=== PATIENT | female | born 1985 | race Caucasian/White ===

== ENCOUNTER 2021-02-16 02:48 | Inpatient (IN) | payer MEDICAID ==
[~2021-02-16] VITALS: Ht 167.6 cm; Wt 66.0 kg
[2021-02-16 03:35] LABS: MICROSCOPIC INDICATED
[2021-02-16] MEDS ORDERED: TERBUTALINE 1 MG/ML, 1ML SQ PRN (04:00)
[2021-02-16] MEDS ORDERED: FENTANYL PF 100 MCG/2ML IVPush PRN (04:00)
[2021-02-16] MEDS ORDERED: LACTATED RINGERS 1,000 ML IV SCH ×2 (04:00→06:00)
[2021-02-16] MEDS ORDERED: TERBUTALINE 1 MG/ML, 1ML IVPush PRN (04:00)
[2021-02-16] MEDS ORDERED: FENTANYL PF 100 MCG/2ML IV PRN (04:00)
[2021-02-16] MEDS ORDERED: OXYTOCIN 30U/ 0.9% NaCL 500ML 500 ML IV ONE (04:00)
[2021-02-16] MEDS ORDERED: ONDANSETRON 2MG/ML, 2ML IVPush PRN (04:00)
[2021-02-16 04:05] VITALS: BP 124/67
[2021-02-16 04:22] LABS: BASOPHILS % (AUTO) 0 % (0-1); EOSINOPHILS % (AUTO) 1 % (1-7); LYMPHOCYTES % (AUTO) 18 % (22-44); MEAN CORPUSCULAR HEMOGLOBIN 33.5 pg (27.0-34.8); MEAN CORPUSCULAR HGB CONC 35.4 g/dL (32.4-35.8); MEAN PLATELET VOLUME 10.3 fL (7.4-10.4); MONOCYTES % (AUTO) 7 % (2-9); NEUTROPHILS % (AUTO) 74 % (42-75); PLATELET COUNT 101 x10^3/uL (130-400); RED BLOOD COUNT 3.17 x10^6/uL (3.82-5.3); RED CELL DISTRIBUTION WIDTH 12.7 % (9.6-15.2)
[2021-02-16] MEDS ORDERED: FENTANYL/BUPIV./NS/PF 250 ML EPIDCONT ONE (04:57)
[2021-02-16] MEDS ORDERED: NALOXONE 0.4 MG/ML, 1ML IVPush PRN (06:00)
[2021-02-16] MEDS ORDERED: EPHEDRINE 50 MG/ML, 1ML IVPush PRN (06:00)
[2021-02-16] MEDS ORDERED: LACTATED RINGERS 1,000 ML IVBOLUS PRN (06:00)
[2021-02-16] MEDS ORDERED: FENTANYL/BUPIV./NS/PF 250 ML EPIDCONT SCH (06:00)
[2021-02-16] MEDS ORDERED: NEWBORN KIT ONE (06:41)
[2021-02-16] MEDS ORDERED: MISOPROSTOL 200 MCG TABLET ONE (07:20)
[2021-02-16] MEDS ORDERED: OXYTOCIN 30U/ 0.9% NaCL 500ML 500 ML ONE (09:26)
[2021-02-16] MEDS ORDERED: IBUPROFEN 600 MG TABLET ONE (09:27)
[2021-02-16] MEDS ORDERED: SIMETHICONE 80 MG CHEW TAB PO PRN (09:30)
[2021-02-16] MEDS ORDERED: GLYCERIN ADULT SUPP PR PRN (09:30)
[2021-02-16] MEDS ORDERED: METHYLERGONOVINE 0.2 MG/ML IM PRN (09:30)
[2021-02-16] MEDS: IBUPROFEN 600 MG TABLET PO PRN ×2 (09:30→15:19)
[2021-02-16] MEDS ORDERED: BISACODYL 10 MG SUPP PR PRN (09:30)
[2021-02-16] MEDS ORDERED: DOCUSATE 100 MG CAPSULE PO PRN (09:30)
[2021-02-16] MEDS ORDERED: MISOPROSTOL 200 MCG TABLET PR PRN (09:30)
[2021-02-16] MEDS ORDERED: CARBOPROST TROMETHAMINE 250 MCG/ML, 1ML IM PRN (09:30)
[2021-02-16] MEDS ORDERED: CALCIUM CARBONATE 500 MG TAB.CHEW PO PRN (09:30)
[2021-02-16] MEDS ORDERED: ONDANSETRON 2MG/ML, 2ML IV PRN (09:30)
[2021-02-16] MEDS ORDERED: OXYcodone/APAP 5/325MG TABLET PO PRN (09:30)
[2021-02-16] MEDS ORDERED: ACETAMINOPHEN 325 MG TABLET PO PRN ×2 (09:30)
[2021-02-16] MEDS ORDERED: METOCLOPRAMIDE 5 MG/ML, 2ML IV PRN (09:30)
[2021-02-16] MEDS: OXYTOCIN 30U/ 0.9% NaCL 500ML 500 ML IV SCH ×2 (09:32→19:30)
[2021-02-16 10:07] LABS: BASOPHILS % (AUTO) 0 % (0-1); EOSINOPHILS % (AUTO) 0 % (1-7); LYMPHOCYTES % (AUTO) 7 % (22-44); MEAN CORPUSCULAR HEMOGLOBIN 33.3 pg (27.0-34.8); MEAN CORPUSCULAR HGB CONC 35.3 g/dL (32.4-35.8); MEAN PLATELET VOLUME 10.6 fL (7.4-10.4); MONOCYTES % (AUTO) 5 % (2-9); NEUTROPHILS % (AUTO) 88 % (42-75); PLATELET COUNT 102 x10^3/uL (130-400); RED BLOOD COUNT 3.06 x10^6/uL (3.82-5.3)
[2021-02-16] MEDS: OXYcodone/APAP 5/325MG TABLET PO PRN ×3 (12:15→20:54)
[2021-02-16 13:29] VITALS: BP 130/86
[2021-02-16 17:00] VITALS: BP 111/71
[2021-02-16 17:29] LABS: BASOPHILS % (AUTO) 0 % (0-1); EOSINOPHILS % (AUTO) 0 % (1-7); LYMPHOCYTES % (AUTO) 10 % (22-44); MEAN CORPUSCULAR HEMOGLOBIN 33.7 pg (27.0-34.8); MEAN CORPUSCULAR HGB CONC 35.6 g/dL (32.4-35.8); MEAN PLATELET VOLUME 10.5 fL (7.4-10.4); MONOCYTES % (AUTO) 6 % (2-9); NEUTROPHILS % (AUTO) 84 % (42-75); PLATELET COUNT 84 x10^3/uL (130-400); RED BLOOD COUNT 3.02 x10^6/uL (3.82-5.3); RED CELL DISTRIBUTION WIDTH 12.9 % (9.6-15.2)
[2021-02-16 20:59] VITALS: BP 108/70
[2021-02-17 00:15] VITALS: BP 104/67
[2021-02-17] MEDS: IBUPROFEN 600 MG TABLET PO PRN (00:16)
[2021-02-17 04:15] VITALS: BP 109/74
[2021-02-17] MEDS: OXYcodone/APAP 5/325MG TABLET PO PRN ×2 (04:15→08:36)
[2021-02-17] MEDS: OXYTOCIN 30U/ 0.9% NaCL 500ML 500 ML IV SCH (05:30)
[2021-02-17] MEDS ORDERED: FERR325T18 PO (07:10)
[2021-02-17] MEDS ORDERED: IBUP-1222 PO (07:10)
[2021-02-17] MEDS ORDERED: OXYC1TAB12 PO (07:10)
[2021-02-17 07:50] VITALS: BP 115/77
[2021-02-17] MEDS ORDERED: PRENATAL VIT/IRON/FA 1 EACH TABLET PO SCH (09:00)
== END 2021-02-17 13:19 | disposition home or self-care (01) | DRG 806 ==
LOC: LDOP 02:48 → LDIP 03:48 → 2NW 12:22
PROVIDERS: ADMIT Obstetrics & Gynecology; ATTEND Obstetrics & Gynecology
PROC: 10E0XZZ Delivery of Products of Conception, External Approach (ICD-10-PCS; principal; 2021-02-16)
PROC: 0HQ9XZZ Repair Perineum Skin, External Approach (ICD-10-PCS; 2021-02-16)
PROC: 3E0R3BZ Introduction of Anesthetic Agent into Spinal Canal, Percutaneous Approach (ICD-10-PCS; 2021-02-16)
PROC: 00HU33Z Insertion of Infusion Device into Spinal Canal, Percutaneous Approach (ICD-10-PCS; 2021-02-16)
PROC: 3E033VJ Introduction of Other Hormone into Peripheral Vein, Percutaneous Approach (ICD-10-PCS; 2021-02-16)
DX: O76 Abnormality in fetal heart rate and rhythm complicating labor and delivery (principal); O99.354 Diseases of the nervous system complicating childbirth; Z37.0 Single live birth; O99.02 Anemia complicating childbirth; G43.909 Migraine, unspecified, not intractable, without status migrainosus; Z20.822 Contact with and (suspected) exposure to COVID-19; D64.9 Anemia, unspecified; O70.0 First degree perineal laceration during delivery; Z3A.39 39 weeks gestation of pregnancy; Z86.32 Personal history of gestational diabetes; Z88.0 Allergy status to penicillin; Z91.040 Latex allergy status; Z88.8 Allergy status to other drugs, medicaments and biological substances
CPT/HCPCS: 36415; 81001; 85025; 86592; 86850; 86900; 87086; 87635; 89060; G0378; J2590; J3010; J7120; Q0114